=== PATIENT | female | born 1995 | race Caucasian/White ===

== ENCOUNTER 2023-10-14 11:35 | Emergency (ER) | payer SELFPAY ==
[2023-10-14 11:36] VITALS: BP 132/87; PULSE 119; RESP 18; TEMP 36.8; O2SAT 99; BMI 41.1
[2023-10-14] MEDS: Ketorolac 30 MG/ML Syringe IM (12:57)
[2023-10-14] MEDS: Orphenadrine 60 MG/2 ML Ampul IM (12:57)
[2023-10-14 13:36] VITALS: BP 128/84; PULSE 108; RESP 18; O2SAT 100
[2023-10-14 14:11] VITALS: BP 134/88; PULSE 99; RESP 16; TEMP 36.9; O2SAT 97
--- NOTE | 2023-10-14 14:37 | EX.ED.DYSGE1 ---
HPI History of Present Illness Chief Complaint: Other, Pain/Inj Narrative Narrative: 28-year-old female presenting with right-sided neck pain. States this has been ongoing since September 24. She does not recall a specific injury. She has pain to the right side of her neck and into her shoulder. She states she initially had a cough but that has resolved. She has tried [id number] medications. She does not currently have a physician. Recent Illness/Hospitalization: No PFSH PFSH Medical History B12 deficiency IBS (irritable bowel syndrome) Home Medications cyclobenzaprine 10 mg tablet 10 mg PO TID PRN Muscle Spasm #20 TABLETS 10/14/23 [Rx Last Taken Unknown] loperamide 2 mg capsule (Anti-Diarrheal (loperamide)) 2 mg PO DAILY 10/14/23 [History Last Taken 10/14/23] Allergy/AdvReac Type Severity Reaction Status Date / Time coconut Allergy Rash Verified 10/14/23 11:39 Food Allergies: Uncoded Allergy Rash Verified 10/14/23 11:39 minocycline Allergy Rash Verified 10/14/23 11:39 Egg Derived AdvReac Upset Verified 10/14/23 11:39 Stomach Social History Smoking Status: Current every day smoker tobacco type: e-cigarettes ROS ROS ED Constitutional Constitutional ED: Denies fever(s) Eyes Eyes: Denies change in vision ENT ENT ED: Denies rhinorrhea or sore throat Cardiovascular Cardiovascular: Denies chest pain or palpitations Respiratory/Chest Respiratory/Chest: Denies cough or dyspnea Gastrointestinal Gastrointestinal: Denies abdominal pain, diarrhea, nausea or vomiting Genitourinary Genitourinary ED: Denies dysuria Musculoskeletal Musculoskeletal: Reports neck pain; Denies myalgias Integumentary Denies rash Neurologic Neurologic: Denies headache(s) Psychiatric Psychiatric: Denies suicidal thoughts EXAM Physical Exam Const Vital Signs: 10/14/23 11:36 10/14/23 12:59 10/14/23 13:36 Temperature 98.2 F Temperature Source Temporal Pulse Rate 119 H 108 H Respiratory Rate 18 18 Respiratory Effort Normal Non-Labored Respiratory Pattern Normal Blood Pressure 132/87 H 128/84 H Blood Pressure Mean 102 98 Pulse Ox 99 100 Oxygen Delivery Method Room Air Room Air 10/14/23 14:11 Temperature 98.4 F Temperature Source Pulse Rate 99 Respiratory Rate 16 Respiratory Effort Respiratory Pattern Blood Pressure 134/88 H Blood Pressure Mean 103 Pulse Ox 97 Oxygen Delivery Method Positive well nourished and well developed General Appearance ED: well developed HEENT Reports normocephalic and head/scalp atraumatic Eyes PERRL and EOMs intact bilaterally Neck supple Neck Narrative: Right paraspinal cervical muscle tenderness, no midline tenderness. General: Negative for tenderness Chest Wall inspection of chest normal Resp normal respiratory effort and clear to auscultation bilaterally Cardio regular rate and regular rhythm GI non-tender and non-distended Palpation: soft; Negative for guarding or rebound tenderness present no CVA tenderness Extremity normal to inspection Neuro oriented x3 Sensorium / Orientation: alert Motor Exam: strength 5/5 throughout Psych mental status grossly normal Skin no rashes or lesions noted MDM MDM MDM Narrative Medical decision making narrative: 28-year-old female presenting with right paraspinal cervical muscle tenderness. This has been ongoing for over 2 weeks. Differential diagnosis includes muscle strain, cervical radiculopathy. She was given Toradol, Norflex IM with some improvement. I do not feel x-rays would be beneficial at this time. She is given primary care follow-up. She is given prescription for Naprosyn and Flexeril. Advised to return to the ED for worsening complaints. Discharge Plan Triage Chief Complaint: Other, Pain/Inj Other Complaint: Cold Sx ED Provider: Latesha Melendez Dx/Rx/DC Orders Clinical Impression: Neck pain Prescriptions: New cyclobenzaprine 10 mg tablet 10 mg PO TID PRN (Reason: Muscle Spasm) Qty: 20 0RF No Action loperamide [Anti-Diarrheal (loperamide)] 2 mg capsule 2 mg PO DAILY Rx Instructions: administer after each loose stool until symptoms controlled; do not exceed 8 mg per 24 hrs Primary Care Provider: Care Physician,No Primary Referrals: Marcela Faye [Non-Staff] - Care Physician,No Primary [Primary Care Provider] - Disposition Disposition: Home, Self Care
[2023-10-14 15:09] VITALS: BP 139/70; PULSE 78; RESP 16; TEMP 35.4; O2SAT 97
== END 2023-10-14 15:10 | disposition home or self-care (01) ==
PROVIDERS: Emergency Provider Emergency Medicine; Visit Provider Emergency Medicine
DX: M54.2 Cervicalgia (principal); M25.511 Pain in right shoulder; K58.9 Irritable bowel syndrome, unspecified; F17.290 Nicotine dependence, other tobacco product, uncomplicated
CPT/HCPCS: 96372; 99283

== ENCOUNTER 2025-03-16 11:17 | Inpatient (IN) | payer OTHER, SELFPAY ==
[2025-03-16] VITALS (38 sets, daily range): BP systolic 107–149; BP diastolic 59–88; PULSE 75–114; RESP 14–18; TEMP 36.7–37.2; O2SAT 97–100; BMI 46.5; BMI 1511.0; BMI 20251002.0
[2025-03-16] MEDS: Penicillin G Pot 5,000,000 UNITS in 0.9% Normal Saline (100mL MB+) 100 ML 150 UNITS IV (12:03)
[2025-03-16 12:13] LABS: Hematocrit 35.0 % (37-47); Hemoglobin 11.8 g/dL (12.0-15.0); Immature Granulocytes Count 0.030 X10^3/uL (0.0-0.0); Mean Corp Hgb Conc 33.7 g/dL (32-36); Mean Corpuscular Volume 88.6 fL (81-99); Mean Platelet Vol. 11.1 fl (6.2-12.0); NRBC Flagged by Analyzer 0 % (0-5); POSITIVE DIFFERENTIAL YES; Platelet Count 222 K/mm3 (150-450); RBC Distribution Width CV 14.6 % (11.6-14.6); RBC Distribution Width SD 46.6 fl (35.1-43.9); Red Blood Count 3.95 M/mm3 (4.2-5.4); White Blood Count 8.6 K/mm3 (4.4-11.0)
[2025-03-16 12:50] LABS: Syphilis Antibodies Nonreactive (Nonreactive)
[2025-03-16] MEDS: Penicillin G 3,000,000 Units 50 ML 100 UNITS IV ×2 (16:07→20:33)
[2025-03-16] MEDS: 0.9% Saline Lock 10 ML Syringe IV (16:08)
[2025-03-16 16:12] LABS: Vitamin B12 250 pg/mL (180-914)
[2025-03-16] MEDS: Lactated Ringers 1,000 ML 50 ML IV (16:40)
[2025-03-16] MEDS: Oxytocin 15 Units/NS 250ml 15 UNITS/250 ML IV.SOLN 2 UNITS IV (16:47)
[2025-03-16] MEDS: Lactated Ringers 1,000 ML 999 ML IV (18:42)
[2025-03-16] MEDS: fentaNYL-bupivacaine (epidural) 100 ML BAG EPIDURAL ×2 (19:51→23:46)
[2025-03-17] VITALS (22 sets, daily range): BP systolic 117–147; BP diastolic 56–82; PULSE 78–107; RESP 15–16; TEMP 36.2–37.4; O2SAT 94–97
[2025-03-17] MEDS: Lactated Ringers 1,000 ML 200 ML IV (00:13)
[2025-03-17] MEDS: Penicillin G 3,000,000 Units 50 ML 100 UNITS IV ×2 (00:36→03:53)
--- NOTE | 2025-03-17 05:11 | PCM.HP.OB ---
HPI - General General Date of Admission: 03/16/25 Date of Service: 03/17/25 Chief Complaint: ROM HPI Narrative MARIMAR WARD, is a 30 F who presents with SPROM around 1030. Clear. GBS positive Maternal Data Information Final ESTELLA: 03/18/25 Gestational age: 39+5 PFSH [facility] Medical History PCOS (polycystic ovarian syndrome) Autism PTSD (post-traumatic stress disorder) Anxiety ADHD Vitamin D deficiency HPV (human papilloma virus) infection B12 deficiency IBS (irritable bowel syndrome) Home Medications ?Medication ?Instructions ?Recorded ?Last Taken ?Type loperamide 2 mg capsule 2 mg PO DAILY IBS 10/14/23 03/15/25 History (Anti-Diarrheal (loperamide)) aspirin 81 mg tablet,delayed 81 mg PO DAILY 03/16/25 03/15/25 History release ferrous sulfate 325 mg (65 mg 325 mg PO QODAY anemia 03/16/25 03/15/25 History iron) tablet (FeroSul) vit no.95-ferrous 1 tab PO DAILY 03/16/25 03/15/25 History fumarate 28 mg-folic acid 800 mcg tablet Allergy/AdvReac Type Severity Reaction Status Date / Time bee venom protein (honey Allergy Other Verified 03/16/25 12:45 bee) (bee sting) coconut Allergy Rash Verified 03/16/25 12:45 Food Allergies: Uncoded Allergy Rash Verified 03/16/25 12:45 latex Allergy Rash Verified 03/17/25 02:03 minocycline Allergy Rash Verified 03/16/25 12:45 orange AdvReac Mild Upset Verified 03/16/25 12:45 Stomach Egg Derived AdvReac Upset Verified 03/16/25 12:45 Stomach Surgical History H/O adenoidectomy Social History Smoking Status: Former smoker History 1 Elective abortions Hx Para 0 Spontaneous abortions Hx # Term Pregnancies Ectopic pregnancies Hx # Pregnancies Multiple births # of living children NST FHR Rate Baby A Baseline: 140 Variability:: Moderate Accelerations:: 15 x 15 Decelerations:: None NST Reactive:: Yes ROS Constitutional Constitutional: Denies fatigue, fever(s) or malaise Eyes Eyes: Denies change in vision ENT HEENT: Denies dizziness or headache(s) Cardiovascular Cardiovascular: Denies chest pain, dyspnea or lightheadedness Respiratory/Chest Respiratory/Chest: Denies cough or dyspnea Gastrointestinal Gastrointestinal: Denies change in bowel habits Genitourinary Genitourinary: Denies burning urination or genital lesions Integumentary Integumentary: Denies rash Neurologic Neurologic: Denies confusion, dizziness, headache(s), numbness or weakness Vital Signs Vital Signs Vital Signs: 03/16/25 11:18 03/16/25 11:18 03/16/25 11:19 Temperature Temperature Source Tympanic Pulse Rate 102 H Respiratory Rate Blood Pressure 131/88 H BP Systolic 131 BP Diastolic 88 Pulse Ox 03/16/25 11:19 03/16/25 11:19 03/16/25 11:19 Temperature 98.2 F Temperature Source Pulse Rate Respiratory Rate 14 Blood Pressure BP Systolic BP Diastolic Pulse Ox 98 03/16/25 12:21 03/16/25 12:21 03/16/25 12:21 Temperature Temperature Source Temporal Pulse Rate 89 Respiratory Rate Blood Pressure 139/79 H BP Systolic 139 BP Diastolic 79 Pulse Ox 03/16/25 12:21 03/16/25 12:21 03/16/25 12:21 Temperature 98.7 F Temperature Source Pulse Rate Respiratory Rate 16 Blood Pressure BP Systolic BP Diastolic Pulse Ox 97 03/16/25 14:29 03/16/25 14:29 03/16/25 14:29 Temperature Temperature Source Temporal Pulse Rate 96 Respiratory Rate 18 Blood Pressure BP Systolic BP Diastolic Pulse Ox 03/16/25 14:29 03/16/25 14:29 03/16/25 14:30 Temperature 98.7 F Temperature Source Pulse Rate Respiratory Rate Blood Pressure 132/80 H BP Systolic 132 BP Diastolic 80 Pulse Ox 97 03/16/25 14:30 03/16/25 14:30 03/16/25 14:30 Temperature Temperature Source Pulse Rate 100 107 H Respiratory Rate Blood Pressure BP Systolic BP Diastolic Pulse Ox 97 03/16/25 15:24 03/16/25 15:24 03/16/25 15:24 Temperature Temperature Source Temporal Pulse Rate 91 Respiratory Rate Blood Pressure 135/81 H BP Systolic 135 BP Diastolic 81 Pulse Ox 03/16/25 15:24 03/16/25 15:24 03/16/25 15:24 Temperature Temperature Source Pulse Rate 92 Respiratory Rate 18 Blood Pressure BP Systolic BP Diastolic Pulse Ox 97 03/16/25 15:24 03/16/25 16:13 03/16/25 16:13 Temperature 99.0 F Temperature Source Pulse Rate 81 Respiratory Rate Blood Pressure 149/88 H BP Systolic 149 BP Diastolic 88 Pulse Ox 03/16/25 16:13 03/16/25 16:13 03/16/25 16:13 Temperature Temperature Source Temporal Pulse Rate 75 Respiratory Rate 16 Blood Pressure BP Systolic BP Diastolic Pulse Ox 03/16/25 16:13 03/16/25 16:13 03/16/25 16:15 Temperature 98.0 F Temperature Source Pulse Rate Respiratory Rate Blood Pressure 128/79 H BP Systolic 128 BP Diastolic 79 Pulse Ox 99 03/16/25 16:15 03/16/25 17:20 03/16/25 17:20 Temperature Temperature Source Temporal Pulse Rate 82 82 Respiratory Rate Blood Pressure BP Systolic BP Diastolic Pulse Ox 03/16/25 17:20 03/16/25 17:20 03/16/25 17:20 Temperature 98.3 F Temperature Source Pulse Rate Respiratory Rate 18 Blood Pressure BP Systolic BP Diastolic Pulse Ox 97 03/16/25 17:21 03/16/25 17:21 03/16/25 17:21 Temperature Temperature Source Pulse Rate 85 Respiratory Rate Blood Pressure 122/66 H BP Systolic 122 BP Diastolic 66 Pulse Ox 97 03/16/25 18:29 03/16/25 18:29 03/16/25 18:29 Temperature Temperature Source Temporal Pulse Rate 77 Respiratory Rate 18 Blood Pressure BP Systolic BP Diastolic Pulse Ox 03/16/25 18:29 03/16/25 18:29 03/16/25 18:32 Temperature 98.7 F Temperature Source Pulse Rate Respiratory Rate Blood Pressure 131/82 H BP Systolic 131 BP Diastolic 82 Pulse Ox 97 03/16/25 18:32 03/16/25 19:10 03/16/25 19:10 Temperature Temperature Source Pulse Rate 91 87 Respiratory Rate Blood Pressure BP Systolic BP Diastolic Pulse Ox 98 03/16/25 19:14 03/16/25 19:14 03/16/25 19:15 Temperature Temperature Source Pulse Rate 92 103 H Respiratory Rate Blood Pressure 133/84 H BP Systolic 133 BP Diastolic 84 Pulse Ox 03/16/25 19:15 03/16/25 19:20 03/16/25 19:20 Temperature Temperature Source Pulse Rate 96 Respiratory Rate Blood Pressure BP Systolic BP Diastolic Pulse Ox 100 99 03/16/25 19:24 03/16/25 19:24 03/16/25 19:24 Temperature Temperature Source Pulse Rate 99 Respiratory Rate 16 Blood Pressure 132/86 H BP Systolic 132 BP Diastolic 86 Pulse Ox 03/16/25 19:25 03/16/25 19:25 03/16/25 19:29 Temperature Temperature Source Pulse Rate 97 Respiratory Rate Blood Pressure 125/82 H BP Systolic 125 BP Diastolic 82 Pulse Ox 98 03/16/25 19:29 03/16/25 19:29 03/16/25 19:30 Temperature Temperature Source Pulse Rate 93 104 H Respiratory Rate 18 Blood Pressure BP Systolic BP Diastolic Pulse Ox 03/16/25 19:30 03/16/25 19:39 03/16/25 19:39 Temperature Temperature Source Pulse Rate 91 Respiratory Rate Blood Pressure BP Systolic BP Diastolic Pulse Ox 99 97 03/16/25 19:40 03/16/25 19:40 03/16/25 19:40 Temperature Temperature Source Pulse Rate 92 Respiratory Rate 16 Blood Pressure 109/62 BP Systolic 109 BP Diastolic 62 Pulse Ox 03/16/25 19:42 03/16/25 19:42 03/16/25 19:44 Temperature 98.8 F Temperature Source Temporal Pulse Rate 93 Respiratory Rate Blood Pressure BP Systolic BP Diastolic Pulse Ox 03/16/25 19:44 03/16/25 19:45 03/16/25 19:45 Temperature Temperature Source Pulse Rate 81 Respiratory Rate Blood Pressure 120/67 BP Systolic 120 BP Diastolic 67 Pulse Ox 97 03/16/25 19:45 03/16/25 19:49 03/16/25 19:49 Temperature Temperature Source Pulse Rate 82 Respiratory Rate 16 Blood Pressure 122/62 H BP Systolic 122 BP Diastolic 62 Pulse Ox 03/16/25 19:49 03/16/25 19:49 03/16/25 19:49 Temperature Temperature Source Pulse Rate 87 Respiratory Rate 16 Blood Pressure BP Systolic BP Diastolic Pulse Ox 98 03/16/25 19:54 03/16/25 19:54 03/16/25 19:55 Temperature Temperature Source Pulse Rate 89 Respiratory Rate Blood Pressure 113/62 BP Systolic 113 BP Diastolic 62 Pulse Ox 98 03/16/25 19:55 03/16/25 19:59 03/16/25 19:59 Temperature Temperature Source Pulse Rate 91 88 Respiratory Rate Blood Pressure 115/61 BP Systolic 115 BP Diastolic 61 Pulse Ox 03/16/25 19:59 03/16/25 20:04 03/16/25 20:04 Temperature Temperature Source Pulse Rate 91 Respiratory Rate Blood Pressure 107/59 L BP Systolic 107 BP Diastolic 59 Pulse Ox 98 03/16/25 20:04 03/16/25 20:34 03/16/25 20:34 Temperature Temperature Source Temporal Pulse Rate 95 Respiratory Rate Blood Pressure BP Systolic BP Diastolic Pulse Ox 97 03/16/25 20:34 03/16/25 20:34 03/16/25 20:34 Temperature 98.9 F Temperature Source Pulse Rate Respiratory Rate 16 Blood Pressure BP Systolic BP Diastolic Pulse Ox 98 03/16/25 20:38 03/16/25 20:38 03/16/25 21:08 Temperature Temperature Source Pulse Rate 114 H Respiratory Rate Blood Pressure 132/80 H 130/78 H BP Systolic 132 130 BP Diastolic 80 78 Pulse Ox 03/16/25 21:08 03/16/25 21:25 03/16/25 21:25 Temperature Temperature Source Temporal Pulse Rate 97 Respiratory Rate 16 Blood Pressure BP Systolic BP Diastolic Pulse Ox 03/16/25 21:25 03/16/25 22:29 03/16/25 22:29 Temperature 98.9 F Temperature Source Pulse Rate 91 Respiratory Rate Blood Pressure 129/77 H BP Systolic 129 BP Diastolic 77 Pulse Ox 03/16/25 22:30 03/16/25 22:30 03/16/25 23:14 Temperature Temperature Source Pulse Rate 98 Respiratory Rate Blood Pressure 143/80 H BP Systolic 143 BP Diastolic 80 Pulse Ox 98 03/16/25 23:14 03/16/25 23:14 03/16/25 23:14 Temperature Temperature Source Pulse Rate 84 93 Respiratory Rate Blood Pressure BP Systolic BP Diastolic Pulse Ox 98 03/16/25 23:15 03/16/25 23:15 03/16/25 23:15 Temperature 98.9 F Temperature Source Temporal Pulse Rate Respiratory Rate 16 Blood Pressure BP Systolic BP Diastolic Pulse Ox 03/17/25 00:22 03/17/25 00:22 03/17/25 00:22 Temperature 99.1 F Temperature Source Temporal Pulse Rate Respiratory Rate 16 Blood Pressure BP Systolic BP Diastolic Pulse Ox 03/17/25 00:23 03/17/25 00:23 03/17/25 00:23 Temperature Temperature Source Pulse Rate 78 80 Respiratory Rate Blood Pressure 129/78 H BP Systolic 129 BP Diastolic 78 Pulse Ox 03/17/25 00:23 03/17/25 01:43 03/17/25 01:43 Temperature Temperature Source Temporal Pulse Rate 102 H Respiratory Rate Blood Pressure BP Systolic BP Diastolic Pulse Ox 96 03/17/25 01:43 03/17/25 01:43 03/17/25 01:43 Temperature 98.1 F Temperature Source Pulse Rate Respiratory Rate 16 Blood Pressure BP Systolic BP Diastolic Pulse Ox 97 03/17/25 01:44 03/17/25 01:44 03/17/25 02:36 Temperature Temperature Source Pulse Rate 99 81 Respiratory Rate Blood Pressure 138/68 H BP Systolic 138 BP Diastolic 68 Pulse Ox 03/17/25 02:36 03/17/25 02:36 03/17/25 02:36 Temperature Temperature Source Pulse Rate Respiratory Rate 16 Blood Pressure 123/67 H BP Systolic 123 BP Diastolic 67 Pulse Ox 95 03/17/25 02:36 03/17/25 03:44 03/17/25 03:44 Temperature Temperature Source Temporal Pulse Rate 80 Respiratory Rate 16 Blood Pressure BP Systolic BP Diastolic Pulse Ox 03/17/25 03:44 03/17/25 03:45 03/17/25 03:45 Temperature 99.3 F H Temperature Source Pulse Rate 81 Respiratory Rate Blood Pressure 117/64 BP Systolic 117 BP Diastolic 64 Pulse Ox Weight Weight: 122.833 kg Body Mass Index (BMI) 46.5 Physical Exam Const alert and no apparent distress General Appearance: cooperative HEENT normocephalic Resp normal respiratory effort Cardio regular rate GI soft to palpation GI Narrative: gravid, nontender, appropriate for gestational age Extremity no calf tenderness General Extremity: edema Skin no wounds Rashes: No rashes noted Psych activity/motor behavior normal Labs Labs Labs: Blood Type O POSITIVE Antibody Screen NEGATIVE Hct, (37-47) 35.0 % L Hgb, (12.0-15.0) 11.8 g/dL L Syphilis Total Ab, (Nonreactive) Nonreactive VZV IgG Antibody, (Immune >165) 2781 index Rubella IgG Antibody, (Nonreactive) Reactive Assessment & Plan (1) Encounter for suspected PROM, with rupture of membranes not found: (2) 39 weeks gestation of : PLAN: Plan Admit for labor GBS + PCN Epidural prn pitocin prn
--- NOTE | 2025-03-17 05:16 | OB.VAGDELI_ITS ---
Assessment & Plan (1) (spontaneous vaginal delivery): Maternal Data Information Final ESTELLA: 03[birth year]/25 Gestational age: 39+6 Vaginal Delivery Maternal Presentation Maternal Presentation: Spontaneous Rupture of Membranes Type of Induction: Pitocin Vaginal Delivery Information Procedure Performed: Spontaneous Vaginal Delivery Surgeon/Practitioner: My Smalls Date of Procedure: 03/17/25 Pre-Procedure Diagnosis: SROM at term Post-Procedure Diagnosis: Type of anesthesia: Epidural Estimated Blood Loss: 200 cc Time of Delivery: 04:53 Findings Description of procedure: Patient presented with SROM. Pitocin augmentation after no cervical change. GBS positive. Received adequate doses of PCN. Once complete she began pushing a pushed for approximately 5.5 hours. The vertex delivered over an intact perineum. SUSHIL with a loose nuchal cord x 1 that was easily reduced. The shoulders delivered spontaneously followed by the rest of the body. The infant was placed on the maternal abdomen and stimulated. The cord was clamped and cut after several minutes. Cord blood was collected. The placenta delivered with fundal massage. There was a small vaginal laceration that was repaired with 2-0 Vicryl. All sponge, needle and instrument counts were correct. 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
[2025-03-17] MEDS: Oxytocin 15 Units/NS 250ml 15 UNITS/250 ML IV.SOLN 83 UNITS IV (05:30)
[2025-03-17] MEDS: 0.9% Saline Lock 10 ML Syringe IV (09:04)
--- NOTE | 2025-03-17 15:40 | CASEMGMT ---
Social Work Assessment Labor and Delivery Unit Patient Address: [address] [place] [address]. [place] [address] Phone number: [phone] Date of Referral: 03/16/25 Time of Referral:? 1256 Referred By: Dr. Smalls Date of Intervention: ??03/17/25 Time of Intervention:? 7281 Reason for Referral:? family history of substance abuse Sw completed chart review and acknowledges social work consult. Sw presented to bedside and introduced self to mother of baby (MOB) Kathy, and father of baby (FOB) Roger. Sw explained reason for sw involvement and completed psychosocial assessment. History obtained from: medical records, MOB and FOB Household composition: Currently residing in the family home is MOB and FOB. They report their home is safe and secure and deny any problems. They state that they are renting and hoping to buy a home within the next year. Patient's parent/guardian status:? CHATO states that she and VIRGEN met each other online, dated for a year and have now been for a year. No concerns reported of domestic violence or intimate partner violence. [place] baby is first baby for both parents. ? Medical History: ?CHATO is 30 year old female who is 1, para 0- now 1 following labor and delivery of . CHATO received routine care during with [facility] beginning in first trimester. CHATO presented to hospital and delivered baby via vaginal delivery on 03/17/25 at 39 weeks gestation. Baby boy, named Felipe, was born weighing 8lb 6oz and had apgars of 8 and 9 at one and five minutes of life, respectfully. CHATO is breast feeding and reports that baby will be followed by Dr. Soto for pediatrics. Educational Status:?Both parents graduated from high school, VIRGEN states that he attended some college, but did not graduate. Parents deny problems with reading, learning or comprehension. Financial Status: Both parents are gainfully employed outside of the home. FOB works for [employer], and CHATO works at [employer] in [employer]. Infant Supplies: All necessary baby supplies obtained, including: car seat, safe sleep space, clothes, diapers and wipes. ?? Childcare/Caregiver(s):? MOB states that she and VIRGEN will be the primary caregivers to baby, when both parents are working they are going to need a childcare provider for 4 hours of the day, and are not sure who they are going to use. Transportation:?? Both parents have their drivers license and reliable means of transportation. No barriers. Programs/Agencies Involved: ???Parents are over income for community resources that provide financial assistance. Children Services/Legal Issues:???No prior involvement with children services. NO issues or concerns warranting referral to be made. Behavioral Health Issues: ??Mental Health History:?VIRGEN states that he has ADHD, his symptoms are managed and he does not require medication assistance. CHATO has been diagnosed with ADHD, PTSD and anxiety. CHATO reports that her anxiety and PTSD are in relation to a negative and toxic relationship that she has with her mother. CHATO states that she grew up living with her mom who would speak down to her and call her names. CHATO states that she finally started to feel better when she moved out of her house when she started dating FOB and they moved in together. CHATO states that she was previously prescribed medication to help her manage her anxiety, but no longer feels as though she requires it. ?? Substance Use History:??Parents deny substance use prior to and during . Family History:?CHATO reports that her mother and VIRGEN's father are alcoholics, which fueled the problems that she and her mother had with each other. Barry educated parents on abstaining from substances due to their genetic makeup and to using healthy and safe coping mechanisms when they feel stressed or overwhelmed. Parents expressed understanding and agreement. ? Drug Screens: No drug screens observed while completing chart review. ?? Family/Social Stressors:? CHATO denies any issues, concerns or stressors at this time. CHATO states that historically she and her mother had a negative relationship with one another. However since she moved out she feels that things have improved. Support Systems: CHATO states that she and VIRGEN are each other's biggest supports. Depression/Shaken Baby/Safe Sleeping:? Barry educated MOB and VIRGEN on signs and symptoms of baby blues and depression and anxiety. CHATO states that she has heard the terms but was not familiar on what symptoms to be mindful of. Barry informed CHATO that she is at higher risk for experiencing symptoms due to her mental health history. MOB states that she feels comfortable talking to FOB if she feels as though she is struggling. MOB states that she also feels comfortable talking to her OBGYN if she thinks that her symptoms are no longer manageable by just using coping mechanisms at home. Sw encouraged MOB to consider getting connected to a community mental health professional. MOB states she would look at the list that social work provided for her. FOB states that he would be able to recognize if MOB were struggling, and he would try to do everything that he can to help her, and if he feels that he is limited in his abilities he would try to find someone who is more suited. Sw educated parents on shaken baby prevention and ABCs of safe sleep, parents express understanding. ASSESSMENT:? MOB and baby admitted following labor and delivery. MOB with mental health history positive for ADHD, anxiety and PTSD. MOB reports that her mental health is in relation to a toxic and unhealthy relationship that she had with her mother growing up, until just about 18 months ago when she moved out. MOB reports that since moving out her mental health has improved significantly. MOB states that FOB has a large part in that. MOB and FOB were both talkative and engaging with sw during completion of assessment. MOB was quiet at times, but made eye contact and answered questions asked. FOB appeared more flat affect, but would become more jovial when answering questions. Both parents were observed to provide loving and appropriate hands on care to . It is noticeable that they are slightly nervous as new parents, but also wanting to do everything they can correctly. Parents have all necessary baby supplies, but appear to be limited in natural supports. PLAN:? No other services requested or indicated. MOB and baby to be discharged when medically ready. Parents were provided literature regarding: signs and symptoms of baby blues and mood and anxiety disorders, Help Me Grow, shaken baby prevention, ABCs of safe sleep and a list of county resources that are available for them should any needs present themselves. Kimberley Guevara, EIGHT ARM OPERATOR, PSYCHOLOGY TEACHER
[2025-03-17] MEDS: GLYCERIN/WITCH HAZEL (TUCKS) MED..PAD 1 EACH TOPICAL (15:49)
[2025-03-18] MEDS: 0.9% Saline Lock 10 ML Syringe IV (00:28)
[2025-03-18 00:31] VITALS: BP 118/68; PULSE 87; RESP 16; TEMP 36.4; O2SAT 98
[2025-03-18 04:29] VITALS: BP 125/73; PULSE 87; RESP 16; TEMP 36.2; O2SAT 95
--- NOTE | 2025-03-18 04:54 | PCM.DC.SUM ---
Providers Date of Admission: 03/16/25 Primary Care Physician: No Primary Care Phys Reason For Visit: VAG Diagnosis Discharge Diagnosis (1) (spontaneous vaginal delivery): Status: Acute Code(s): O80 - Encounter for full-term uncomplicated delivery Medications at Discharge Home Medications ferrous sulfate 325 mg (65 mg iron) tablet (FeroSul) 325 mg PO QODAY anemia 03/16/25 vit no.95-ferrous fumarate 28 mg-folic acid 800 mcg tablet 1 tab PO DAILY 03/16/25 acetaminophen 500 mg tablet 1,000 mg (2 x 500 mg) PO Q6H PRN PRN Pain 1-10 Or Fever #0 tabs 03/18/25 ibuprofen 600 mg tablet 600 mg PO Q6H PRN PRN Pain Score 1-10 #0 tabs 03/18/25 Hospital Course Operations None Procedures None Summary of Care Provided Minutes Spent on Discharge: 15 Hospital Course: Patient had vaginal delivery. Hospital course was uneventful. Physical Exam Narrative Patient seen at bedside. Denies pain. Ambulating and voiding without difficulty. Lochia decreased. Desires discharge home today. Const alert and oriented x3 General Appearance: Negative for in distress HEENT normocephalic Eyes General Eye: normal appearance of both eyes Neck General: normal visual inspection Chest Chest: symmetrical chest wall rise Resp normal respiratory effort and normal air movement Effort and Inspection: symmetric chest movement; Negative for tachypneic Auscultation: clear to auscultation bilaterally Cardio regular rate and regular rhythm Peripheral Pulses: pulses 2+ throughout GI normal to inspection, nondistended, normoactive bowel sounds Narrative: Ice to perineum OB / External & Speculum: vaginal bleeding and other Lochia decreasing Uterus Palpation: uterus fundus firm (Below U) Extremity normal to inspection, full ROM and normal capillary refill Skin no rashes or lesions noted Neuro oriented x3, CN's II-XII intact bilaterally and gait normal Psych mental status grossly normal, thought process normal and activity/motor behavior normal Weight / BMI Weight Weight: 270 lb 12.8 oz Body Mass Index (BMI) 46.5 ABG / Lab / Microbiology Data 03/16/25 12:00 D/C Instructions Discharge Activity: Return to Normal Activity, No Restrictions, May Drive, May Shower and May Take a Tub Bath (Warm water only. No bath salts, soaps, bubbles) May resume sexual activity in: 6-8 weeks Weight Bearing Status: Weight bearing as tolerated Call your doctor if you observe: Fever of 101 or Higher, Inability to urinate, Using more than 1 pad per hour, Shortness of breath, Dizziness, Chest pain, Calf discomfort and Uncontrolled pain Please Follow Up With: [facility] Jw HURTADO When: 2 weeks in office or virtual Meaningful Use Info Meaningful Use Meaningful Use Diagnoses (Choose all that apply): None applicable Discharge Plan Admission Admit Date/Time: 03/16/25 11:17 Primary Reason for Your Visit: Labor and Delivery Attending Provider: My Smalls Primary Care Provider: Care PhysicianStephanie Primary Discharge Orders/Prescriptions Prescriptions: New acetaminophen 500 mg Tablet 1,000 mg PO Q6H PRN PRN (Reason: Pain 1-10 Or Fever) Qty: 0 0RF ibuprofen 600 mg Tablet 600 mg PO Q6H PRN PRN (Reason: Pain Score 1-10) Qty: 0 0RF Continued ferrous sulfate [FeroSul] 325 mg (65 mg iron) tablet 325 mg PO QODAY PNV no.95-ferrous fumarate-FA 28 mg iron- 800 mcg tablet 1 tab PO DAILY Discontinued loperamide [Anti-Diarrheal (loperamide)] 2 mg capsule 2 mg PO DAILY Rx Instructions: administer after each loose stool until symptoms controlled; do not exceed 8 mg per 24 hrs aspirin 81 mg tablet,delayed release (DR/EC) 81 mg PO DAILY Referrals / Follow Up: Care Physician,No Primary [Primary Care Provider, Medical] Disposition Disposition (needs filled in before D/C Order can be placed): Home, Self Care
--- NOTE | 2025-03-18 05:28 | PN.OBGYN_ITS ---
Subjective Subjective Patient seen at bedside. Associate Music Professor in room. remains under bili lights. Anticipate d/c home possibly tomorrow. Objective Data Objective Data Vital Signs: Vital Signs Temp Pulse Resp BP Pulse Ox O2 Del Method 97.2 F L 87 16 125/73 H 95 Room Air 03/18/25 04:29 03/18/25 04:29 03/18/25 04:29 03/18/25 04:29 03/18/25 04:29 03/18/25 04:29 Oxygen Delivery Method Room Air Weight: 270 lb 12.8 oz Body Mass Index (BMI) 46.5 Intake & Output: Intake and Output for Last 24 Hours 03/16/25 03/17/25 03/18/25 23:59 23:59 23:59 Intake Total 2603.80 / 2603.80 2496.20 / 2496.20 Output Total 670 / 670 650 / 650 Balance 1933.80 / 1933.80 1846.20 / 1846.20 Lab / Micro Data Attestation: I reviewed the patient's lab results. 03/16/25 12:00 ROS Eyes Eyes: Denies blurry vision, change in vision or spots in vision ENT HEENT: Denies dizziness or headache(s) Cardiovascular Cardiovascular: Denies abdominal pain, chest pain or dyspnea Respiratory/Chest Respiratory/Chest: Denies cough, dyspnea, shortness of breath at rest or shortness of breath with exertion Gastrointestinal Gastrointestinal: Denies abdominal pain, diarrhea or vomiting Genitourinary Genitourinary: Denies change in urinary stream, difficulty urinating or dysuria Musculoskeletal Musculoskeletal: Reports none Integumentary Integumentary: Denies rash Neurologic Neurologic: Denies dizziness, headache(s), memory loss or weakness Physical Exam Const alert and no apparent distress General Appearance: cooperative and comfortable Exam Limitations: no limitations HEENT normocephalic Eyes General Eye: normal appearance of both eyes Neck full ROM General: normal visual inspection Chest Chest: symmetrical chest wall rise Resp normal respiratory effort and normal air movement Effort and Inspection: symmetric chest movement Auscultation: clear to auscultation bilaterally Cardio regular rate and regular rhythm GI normal to inspection, nondistended, normoactive bowel sounds Back/Spine normal ROM Extremity full ROM and no calf tenderness General Extremity: normal exam except as noted Skin no rashes or lesions noted Neuro oriented x3 Speech: speech normal Psych mental status grossly normal Thought Process: normal thought process Assessment & Plan (1) (spontaneous vaginal delivery): (2) Autism: (3) ADHD: (4) PTSD (post-traumatic stress disorder): PLAN: PPD 1 Pain control Feeding support Baby remains under bili lights-- may be d/c tomorrow (5) Laceration, obstetrical, first degree:
[2025-03-18 07:40] VITALS: BP 118/70; PULSE 94; RESP 16; TEMP 36.7; O2SAT 97
--- NOTE | 2025-03-18 11:48 | NURSING ---
1100- RN updated Cplotts on pts unresolved nausea after giving PO Zofran. Notified that pt threw up after attempting to eat. Notified of Pt having IBS and POC is to hold the senna. POC is to speak with the pt and give the pt the option of doing a suppository of Phenergan 12.5 mg rectally or restarting the IV and giving IV fluids and Zofran. Pt chose to proceed with the suppository.
[2025-03-18] MEDS: proMETHazine 12.5 MG Suppos. RC (12:01)
[2025-03-18] MEDS: SELF ADMINISTRATION OF MEDS 1 EACH NOTE (12:04)
[2025-03-18] MEDS: GLYCERIN/WITCH HAZEL (TUCKS) MED..PAD 1 EACH TOPICAL (12:06)
[2025-03-18 12:08] VITALS: BP 107/60; PULSE 77; RESP 18; TEMP 36.8; O2SAT 96
[2025-03-18 20:00] VITALS: BP 134/74; PULSE 91; RESP 16; TEMP 36.4; O2SAT 97
[2025-03-19 01:45] VITALS: BP 127/71; PULSE 81; RESP 16; TEMP 36.4; O2SAT 96
--- NOTE | 2025-03-19 06:30 | DS.PCM_ITS ---
Providers Date of Admission: 03/16/25 Primary Care Physician: No Primary Care Phys Reason For Visit: VAG Diagnosis Discharge Diagnosis (1) (spontaneous vaginal delivery): Status: Acute Code(s): O80 - Encounter for full-term uncomplicated delivery (2) Autism: Status: Acute Code(s): F84.0 - Autistic disorder (3) ADHD: Status: Acute Code(s): F90.9 - Attention-deficit hyperactivity disorder, unspecified type (4) PTSD (post-traumatic stress disorder): Status: Acute Code(s): F43.10 - Post-traumatic stress disorder, unspecified (5) Laceration, obstetrical, first degree: Status: Acute Code(s): O70.0 - First degree perineal laceration during delivery Medications at Discharge Home Medications ferrous sulfate 325 mg (65 mg iron) tablet (FeroSul) 325 mg PO QODAY anemia 03/16/25 vit no.95-ferrous fumarate 28 mg-folic acid 800 mcg tablet 1 tab PO DAILY 03/16/25 acetaminophen 500 mg tablet 1,000 mg (2 x 500 mg) PO Q6H PRN PRN Pain 1-10 Or Fever #0 tabs 03/18/25 ibuprofen 600 mg tablet 600 mg PO Q6H PRN PRN Pain Score 1-10 #0 tabs 03/18/25 Hospital Course Operations None Procedures None Summary of Care Provided Minutes Spent on Discharge: 15 Hospital Course: Patient had vaginal delivery. Hospital course was uneventful. Physical Exam Narrative Patient seen at bedside. Denies pain. Ambulating and voiding without difficulty. Lochia decreased. Desires discharge home today. Const alert and oriented x3 General Appearance: Negative for in distress HEENT normocephalic Eyes General Eye: normal appearance of both eyes Neck General: normal visual inspection Chest Chest: symmetrical chest wall rise Resp normal respiratory effort and normal air movement Effort and Inspection: symmetric chest movement; Negative for tachypneic Auscultation: clear to auscultation bilaterally Cardio regular rate and regular rhythm Peripheral Pulses: pulses 2+ throughout GI normal to inspection, nondistended, normoactive bowel sounds Narrative: Ice to perineum OB / External & Speculum: vaginal bleeding and other Lochia decreasing Uterus Palpation: uterus fundus firm (Below U) Extremity normal to inspection, full ROM and normal capillary refill Skin no rashes or lesions noted Neuro oriented x3, CN's II-XII intact bilaterally and gait normal Psych mental status grossly normal, thought process normal and activity/motor behavior normal Weight / BMI Weight Weight: 270 lb 12.8 oz Body Mass Index (BMI) 46.5 ABG / Lab / Microbiology Data 03/16/25 12:00 D/C Instructions Discharge Activity: Return to Normal Activity, No Restrictions, May Drive, May Shower and May Take a Tub Bath (Warm water only. No bath salts, soaps, bubbles) May resume sexual activity in: 6-8 weeks Weight Bearing Status: Weight bearing as tolerated Call your doctor if you observe: Fever of 101 or Higher, Inability to urinate, Using more than 1 pad per hour, Shortness of breath, Dizziness, Chest pain, Calf discomfort and Uncontrolled pain DC O2, CPAP, BIPAP Needs Home O2 Discharge instructions: No Please Follow Up With: [facility] Jw HURTADO When: 2 weeks in office or virtual Meaningful Use Info Meaningful Use Meaningful Use Diagnoses (Choose all that apply): None applicable Discharge Plan Admission Admit Date/Time: 03/16/25 11:17 Primary Reason for Your Visit: Labor and Delivery Attending Provider: My Smalls Primary Care Provider: Stephanie Phelan Primary Discharge Orders/Prescriptions Prescriptions: New acetaminophen 500 mg Tablet 1,000 mg PO Q6H PRN PRN (Reason: Pain 1-10 Or Fever) Qty: 0 0RF ibuprofen 600 mg Tablet 600 mg PO Q6H PRN PRN (Reason: Pain Score 1-10) Qty: 0 0RF Continued ferrous sulfate [FeroSul] 325 mg (65 mg iron) tablet 325 mg PO QODAY PNV no.95-ferrous fumarate-FA 28 mg iron- 800 mcg tablet 1 tab PO DAILY Discontinued loperamide [Anti-Diarrheal (loperamide)] 2 mg capsule 2 mg PO DAILY Rx Instructions: administer after each loose stool until symptoms controlled; do not exceed 8 mg per 24 hrs aspirin 81 mg tablet,delayed release (DR/EC) 81 mg PO DAILY Referrals / Follow Up: Care Physician,No Primary [Primary Care Provider, Medical] Disposition Disposition (needs filled in before D/C Order can be placed): Home, Self Care
[2025-03-19 07:47] VITALS: BP 123/82; PULSE 71; RESP 16; TEMP 36.7; O2SAT 98
[2025-03-19] MEDS: GLYCERIN/WITCH HAZEL (TUCKS) MED..PAD 1 EACH TOPICAL (11:45)
[2025-03-19] MEDS: SELF ADMINISTRATION OF MEDS 1 EACH NOTE (11:45)
[2025-03-19 13:30] VITALS: BP 125/76; PULSE 85; RESP 16; TEMP 36.6; O2SAT 98
--- NOTE | 2025-03-19 18:53 | CASEMGMT ---
Social Work Date of referral: 03/19/25 Reason for referral: Support/resources needed Referred by: Patient's nurse Patient provided consent for social work visit. When elementary school social worker arrived, mother of baby (MOB) and father of baby (FOB) were both sitting on the couch and the baby was in the crib sleeping. MOB cried throughout the visit and stated she hasn't slept since except for maybe an hour, said she feels guilty that is jaundice and is requiring light treatment and feels bad that she's not able to breastfeed and only gets 30 minutes of skin to skin with each feeding and that baby has to stay under the lights the rest of the time. MOB said she's not sleeping at night because the baby's protective eye mask moves around so she keeps moving it back cover his eyes. She said she's also afraid of SIDS so she feels like she can't take her eyes of of . MOB stated they live [place] the street from the hospital and the father of baby has gone back home to shower and feed the cats and she would like to go home and sleep in her bed and see her cats but doesn't want to leave baby. Mother of baby said she doesn't want to leave the hospital without the baby. elementary school social worker provided emotional support, verbal and written education and resources for anxiety and depression management and self-care and mental health resources. . MOB didn't appear to be very open to what elementary school social worker was saying but was kind and polite. FOB also was reassuring and supportive to the MOB and would frequently rub her back. MOB stated she used to be on medication for depression and anxiety about 4 years ago and is open to the idea of possibly getting back on something for now. Court Crier emphasized the importance of self-care and sleeping when baby is sleeping and even encouraged the MOB to go home for a few hours to sleep and then come back when she stated she will think about doing on 03/20. MOB denied any suicidal ideation. Court Crier updated nurse and weekday elementary school social worker so that floor elementary school social worker can touch base with the MOB and FOB on 03/20 to see how they are doing and if any extra support is needed. My Hyde, CHAIN OFFBEARER, [employer]
--- NOTE | 2025-03-20 08:50 | CASEMGMT ---
Brief Social Work Note Date of Intervention: 03/20/25 Time of Intervention: 0845 Intervention: Sw informed by Bellman that mother of baby (MOB) tearful over the weekend and would benefit from meeting with social work again prior to being discharged. Sw read sw note from weekend and presented to bedside, observed MOB to be sitting in reclining chair and doing skin to skin with . Sw re-introduced self to MOB and asked how she was doing. MOB stated that she is doing much better today, she got more sleep last night and thinks that helped her a lot. MOB talkative with sw and explained that she believes her lack of sleep and feeling bad that baby was requiring phototherapy for jaundice was causing her a lot of anxiety and tearfulness. Sw empathized due to MOB's labor and delivery experience as a first time mom being challenging and not how she anticipated it going. Sw explained to MOB that when these circumstances happen, moms are more at risk to experience some symptoms and asked if she was receptive to completing an [place] Depression Scale. MOB stated that she was, and her score was a 9- which is indicative of depression/ anxiety symptoms. Sw provided education and support. Sw asked if father of baby (FOB) has been helpful (who then presented to bedside with car seat). MOB state that he has, he has tried to help at night, but is is difficult when baby wants to eat. MOB states when they are in their own environment at home she thinks it will be better. Sw asked MOB if she has talked to her OBGYN about how she has been experiencing heightened anxiety over the past few days. MOB stated that she has, and she is hoping that her doctor is going to prescribe her a medication to help with her mental health. Sw praised MOB for being open to start something to help her mental health. MOB reports that she does not want to go home feeling the way that she is here. Sw also provided MOB with a list of county therapy providers including: [place] [id number], [employer]. [place] [employer], and some other agencies that are down [facility]. MOB states that she is definitely going to call Behavioral health to see if she can be seen. Assessment: MOB was more talkative today than when sw met with her on Thursday. MOB seemed receptive to resources that were provided and willing to follow through with making appointments. While meeting with MOB she was holding baby, and was observed to have a connection/ alonso with him. She states that she felt anxiety because she was limited to the amount of time that she could hold him. MOB is observed to be advocating for herself and her mental health. Unknown at this time how much of a support FOB is going to be for MOB when they are at home. There are times when he has been observed by staff to be supportive, and other times when he has not been and is playing video games in the room not helping mom. Sw encouraged MOB to continue to communicate to her supports to tell them what she needs from them, MOB expressed understanding. *Adding to say, note is written on 03/21/25, when MOB left on 03/20/25 she had appointment scheduled with Behavioral Health and had spoken to her OBGYN about starting pharmacological medication. Kimberley Guevara, AUTOMOTIVE BRAKE ADJUSTER, VP RHEUMATOLOGY
== END 2025-03-19 17:30 | disposition home or self-care (01) | DRG 806 ==
LOC: WPOUT 11:19 → WP 11:19
PROVIDERS: Admitting Provider Obstetrics & Gynecology; Referring Provider Obstetrics & Gynecology; Visit Provider Obstetrics & Gynecology
DX: O42.92 Full-term premature rupture of membranes, unspecified as to length of time between rupture and onset of labor (principal); Z37.0 Single live birth; F84.0 Autistic disorder; O99.344 Other mental disorders complicating childbirth; F43.10 Post-traumatic stress disorder, unspecified; O99.824 Streptococcus B carrier state complicating childbirth; Z87.891 Personal history of nicotine dependence; F90.9 Attention-deficit hyperactivity disorder, unspecified type; Z3A.39 39 weeks gestation of pregnancy; O70.0 First degree perineal laceration during delivery; O69.81X0 Labor and delivery complicated by cord around neck, without compression, not applicable or unspecified
CPT/HCPCS: 59025; 59050; 82607; 85025; 86780; 86850; 86900; 86901; 99221; A4216; G0378; J2405